=== PATIENT | male | born 1955 | race Caucasian/White ===

== ENCOUNTER 2021-12-03 12:35 | Day surgery (SDC) | payer BC, SELFPAY ==
[2021-12-03] VITALS (11 sets, daily range): BP systolic 130–164; BP diastolic 84–98; PULSE 64–84; RESP 15–35; TEMP 36.3–36.9; O2SAT 95–100; BMI 22.0
[2021-12-03 13:25] LABS: COVID-19 Test Negative (Negative); IDNOW Serial# 55D5AD1C
--- NOTE | 2021-12-03 13:58 | MHC.SHP ---
Pre-Procedural Eval Section A Date of Service: 12/03/21 The patient is an INPATIENT: No Changes since office visit: Yes Patient answered all questions; No Cold of Flu in the past 2 weeks, No New Medical Problems and No Changes in Medication The History & Physical has been completed within 30 days and I have reviewed it.: Yes Section B Chief Complaint: depression Allergies: Allergies Allergy/AdvReac Type Severity Reaction Status Date / Time infliximab [From REMICADE] Allergy Unknown UNK Unverified 04/20/20 19:35 Penicillins [PENICILLINS] Allergy Unknown HIVES, Unverified 04/20/20 19:35 ANAPHYLAXIS Plan I have reviewed the history and physical and performed a pertinent physical examination on my patient. No changes have occurred unless specified.
--- NOTE | 2021-12-03 14:29 | HO.ECTPROC ---
ECT Procedure Note Diagnosis/Treatment Date of Service: 12/03/21 Diagnosis: Major Depressive Disorder Current Treatment Number: 1 Treatment: Series Interval Clinical Notes: pt with anxious depression has failed multiple med trials ECT Settings Device: THYMATRON DGx Electrode Placement: Right Unilateral Program/Pulse Width: 0.25 Energy Percent: 100 Medications Administration General Anesthetic: Etomidate (16) Muscle Relaxant: Succinylcholine (100) Ancillary Medications Analgesics: Torodol - Pre ECT Anti-emetics: Zofran - Pre ECT Miscillaneous Medications: Propofol (30) Airway Management Airway Management: Bag Mask Ventilation Treatment Recommendations No Changes Recommended: No change Pt Tolerated Procedure w/o Issue: Yes
[2021-12-03] MEDS: LORazepam 2 MG/ML VIAL 1 MG IVPUSH (15:11)
[2021-12-03] MEDS: ondansetron HCL 4 MG/2 ML VIAL IVPUSH (15:50)
--- NOTE | 2021-12-03 16:28 | HO.ECTPROC ---
ECT Procedure Note Diagnosis/Treatment Date of Service: 12/04/21 Diagnosis: Major Depressive Disorder Current Treatment Number: 1 Treatment: Series Interval Clinical Notes: Pt gave informed consent deptressed ruminating anxious see consult ECT Settings Device: THYMATRON DGx Electrode Placement: Right Unilateral Program/Pulse Width: 0.50 Energy Percent: 100 Medications Administration General Anesthetic: Etomidate (16) Muscle Relaxant: Succinylcholine (100) Ancillary Medications Analgesics: Torodol - Pre ECT Anti-emetics: Zofran - Pre ECT Airway Management Airway Management: Bag Mask Ventilation Treatment Recommendations Program/Pulse Width: 0.25 Notes: [place] severe and nausea postop received Ativan 1 mg IV and another 4 mg of Zofran IV may need to change from etomidate Pt Tolerated Procedure w/o Issue: No
[2021-12-03 17:21] LABS: TSH reflex Free T4 1.22 uIU/mL (0.32-4.0)
[2021-12-03 17:23] LABS: Syphilis Screen Nonreactive (Nonreactive)
[2021-12-03 17:36] LABS: Folate 14.7 ng/mL (> or = 4.0); Vitamin B12 404 pg/mL (200-900)
[2021-12-05 08:37] LABS: Lyme Abs Screen <0.90 index
== END 2021-12-03 17:53 | disposition home or self-care (01) ==
PROVIDERS: PCP Family Medicine; Visit Provider Psychiatry & Neurology Psychiatry
PROC: (CPT 90870; principal; 2021-12-03 16:30)
DX: F33.2 Major depressive disorder, recurrent severe without psychotic features (principal); F41.8 Other specified anxiety disorders; K50.90 Crohn's disease, unspecified, without complications; J45.20 Mild intermittent asthma, uncomplicated; Z79.899 Other long term (current) drug therapy; Z88.0 Allergy status to penicillin; Z88.8 Allergy status to other drugs, medicaments and biological substances; Z20.822 Contact with and (suspected) exposure to COVID-19
CPT/HCPCS: 36415; 82607; 82746; 84443; 86617; 86618; 86780; 87635; 90870; J0330; J1885; J2060; J2405; J2550

== ENCOUNTER 2021-12-05 06:05 | Day surgery (SDC) | payer BC, SELFPAY ==
[2021-12-05] VITALS (8 sets, daily range): BP systolic 118–146; BP diastolic 56–86; PULSE 64–72; RESP 14–18; TEMP 36.3–36.9; O2SAT 94–97; BMI 23.1
[2021-12-05 06:40] LABS: COVID-19 Test Negative (Negative)
--- NOTE | 2021-12-05 06:47 | P.CONAN_ITS ---
[facility] Active Problems Active Problems: All Active Problems (Updated 11/30/21 @ 12:28 by Germaine Aranda NP) Generalized anxiety disorder (Acute) Depression, major, severe recurrence (Acute) Past Medical History Medical History (Updated 11/30/21 @ 12:28 by Germaine Aranda NP) Asthma Crohn disease Depression, major, severe recurrence Generalized anxiety disorder Family History Family history of problems with anesthesia: No Surgical History History of Problems with Anesthesia: No Social History Social History Advance Directives: No Advance Directives Information Provided: Yes Meds Allergies Allergy/AdvReac Type Severity Reaction Status Date / Time infliximab [From REMICADE] Allergy Unknown UNK Verified 12/03/21 15:52 Penicillins [PENICILLINS] Allergy Unknown HIVES, Verified 12/03/21 15:52 ANAPHYLAXIS Active Medications: Current Medications Lactated Ringer's (Lr) 1,000 mls @ 50 mls/hr IVCONT .Q20H VIGNESH Exam Exam Date and Time: December 05, 2021 0647 Height,Weight and Vital Signs: Height 6 ft 1 in Weight 79.379 kg Last Vital Signs Temp 98.4 F 12/05/21 06:35 Pulse 64 12/05/21 06:35 Resp 16 12/05/21 06:35 BP 118/56 L 12/05/21 06:35 Pulse Ox 96 12/05/21 06:35 Pertinent Lab Results Pertinent Lab Results: Laboratory Tests 12/05/21 06:16 COVID-19 (PHONG) Negative COVID-19 Clin Com See Note Airway Mallampati Class: II TM Dist: >3cm Neck ROM: Full Heart: rrr Lungs: cta Assessment and Plan Assessment Anesthesia Assessment: Anesthesia Plan Discussed and Chart Reviewed Final Anesthetic Review Family History of Problems with Anesthesia: No History of Problems with Anesthesia: No NPO: Yes ASA Class: III Final Preanesthetic Review: No Changes in Pt Med Stat, Meds/Allgs Chart Reviewed and Consent Obtained/Reviewed Patient Risk: Intermediate Procedure Risk: Intermediate Anesthetic Plan Anesthetic Plan: GA Disposition: Standard PACU
--- NOTE | 2021-12-05 07:08 | MHC.SHP ---
Pre-Procedural Eval Section A Date of Service: 12/05/21 The patient is an INPATIENT: No Changes since office visit: Yes Patient answered all questions; No Cold of Flu in the past 2 weeks, No New Medical Problems and No Changes in Medication The History & Physical has been completed within 30 days and I have reviewed it.: Yes Section B Chief Complaint: depression Allergies: Allergies Allergy/AdvReac Type Severity Reaction Status Date / Time infliximab [From REMICADE] Allergy Unknown UNK Verified 12/03/21 15:52 Penicillins [PENICILLINS] Allergy Unknown HIVES, Verified 12/03/21 15:52 ANAPHYLAXIS Plan I have reviewed the history and physical and performed a pertinent physical examination on my patient. No changes have occurred unless specified.
--- NOTE | 2021-12-05 07:09 | HO.ECTPROC ---
ECT Procedure Note Diagnosis/Treatment Date of Service: 12/05/21 Diagnosis: Major Depressive Disorder Previous ECT Date: 12/03/21 Current Treatment Number: 2 Treatment: Series Interval Clinical Notes: Pt feels less anxious less depressed no c/o side effects ECT Settings Device: THYMATRON DGx Electrode Placement: Right Unilateral Program/Pulse Width: 0.50 Energy Percent: 80 Seizure Duration By EEG (in seconds): 52 Medications Administration General Anesthetic: Etomidate (14) Muscle Relaxant: Succinylcholine (120) Ancillary Medications Analgesics: Torodol - Pre ECT (4) Miscillaneous Medications: Midazolam (2mg) Airway Management Airway Management: Bag Mask Ventilation Treatment Recommendations No Changes Recommended: No change Pt Tolerated Procedure w/o Issue: Yes
[2021-12-05 07:49] LABS: Anion Gap 12 (12-20); Blood Urea Nitrogen 15 mg/dL (9-16); Calcium 8.3 mg/dL (8.4-10.2); Carbon Dioxide 23 mmol/L (22-29); Chloride 108 mmol/L (96-108); Estimated Glomerular Filt Rate > 60; Glucose Fasting 117 mg/dL (60-99); Potassium 4.4 mmol/L (3.3-5.1); Sodium 139 mmol/L (135-145)
[2021-12-05] MEDS: Lactated Ringers 1,000 ML 50 ML IVCONT (08:46)
[2021-12-05] MEDS: Ondansetron ODT 4 MG TAB.RAPDIS TRANSLINGU (09:14)
--- NOTE | 2021-12-05 09:34 | PC.NURSE ---
PATIENT STATED DISCHARGE AND SOME NAUSEA WHILE IN DISCHARGE AREA. THIS RN HAD DR. RODRIGUEZ ASSESS PATIENT. PATIENT GIVEN ZOFRAN PER ORDER. PATIENT GIVEN GINGERALE AND A MUFFIN.
--- NOTE | 2021-12-05 09:55 | PC.NURSE ---
PATIENT STATES FEELING BETTER BUT REMAINS A LITTLE SHAKY. ANESTHESIOLOGIST RE ASSESSED AND PATIENT BEING DISCHARGED HOME.
--- NOTE | 2021-12-05 10:16 | PC.NURSE ---
PATIENT REASSESSED AGAIN PRIOR TO DISCHARGE BY ANESTHESIOLOGIST. ANESTHESIOLOGIST TO ALSO NOTIFY DR. ROSE. PT DISCHARGED HOME.
== END 2021-12-05 10:17 | disposition home or self-care (01) ==
PROVIDERS: Nurse Practitioner; PCP Family Medicine; Visit Provider Psychiatry & Neurology Psychiatry
PROC: (CPT 90870; principal; 2021-12-05 07:30)
DX: F33.2 Major depressive disorder, recurrent severe without psychotic features (principal); F41.1 Generalized anxiety disorder; K50.90 Crohn's disease, unspecified, without complications; J45.20 Mild intermittent asthma, uncomplicated; Z79.899 Other long term (current) drug therapy; Z88.0 Allergy status to penicillin; Z88.8 Allergy status to other drugs, medicaments and biological substances; Z20.822 Contact with and (suspected) exposure to COVID-19
CPT/HCPCS: 36415; 80048; 87635; 90870; J0330; J1885; J2250; J2405

== ENCOUNTER 2021-12-07 06:00 | Day surgery (SDC) | payer BC, SELFPAY ==
[2021-12-07] VITALS (9 sets, daily range): BP systolic 109–131; BP diastolic 66–86; PULSE 56–70; RESP 12–20; TEMP 36.6–36.7; O2SAT 96–98; BMI 23.1
[2021-12-07 06:39] LABS: COVID-19 Test Negative (Negative)
--- NOTE | 2021-12-07 06:56 | HO.ANESPROP2 ---
[facility] Active Problems Active Problems: All Active Problems (Updated 11/30/21 @ 12:28 by Germaine Aranda NP) Generalized anxiety disorder (Acute) Depression, major, severe recurrence (Acute) Past Medical History Medical History (Updated 11/30/21 @ 12:28 by Germaine Aranda NP) Asthma Crohn disease Depression, major, severe recurrence Generalized anxiety disorder Family History Family history of problems with anesthesia: No Surgical History History of Problems with Anesthesia: No Social History Social History Advance Directives: No Advance Directives Information Provided: Yes Meds Allergies Allergy/AdvReac Type Severity Reaction Status Date / Time infliximab [From REMICADE] Allergy Unknown UNK Verified 12/03/21 15:52 Penicillins [PENICILLINS] Allergy Unknown HIVES, Verified 12/03/21 15:52 ANAPHYLAXIS Active Medications: Current Medications Lactated Ringer's (Lr) 1,000 mls @ 50 mls/hr IVCONT .Q20H VIGNESH Exam Exam Date and Time: December 07, 2021 0656 Height,Weight and Vital Signs: Height 6 ft 1 in Weight 79.379 kg Last Vital Signs Temp 98.1 F 12/07/21 06:30 Pulse 58 12/07/21 06:30 Resp 17 12/07/21 06:30 BP 109/71 12/07/21 06:30 Pulse Ox 98 12/07/21 06:30 Pertinent Lab Results Pertinent Lab Results: Laboratory Tests 12/07/21 06:17 COVID-19 (PHONG) Negative COVID-19 Clin Com See Note Airway Mallampati Class: II TM Dist: >3cm Neck ROM: Full Heart: rrr Lungs: cta Assessment and Plan Assessment Anesthesia Assessment: Anesthesia Plan Discussed and Chart Reviewed Final Anesthetic Review Family History of Problems with Anesthesia: No History of Problems with Anesthesia: No NPO: Yes ASA Class: III Final Preanesthetic Review: No Changes in Pt Med Stat, Meds/Allgs Chart Reviewed and Consent Obtained/Reviewed Patient Risk: Intermediate Procedure Risk: Intermediate Anesthetic Plan Anesthetic Plan: GA Disposition: Standard PACU
--- NOTE | 2021-12-07 07:09 | MHC.SHP ---
Pre-Procedural Eval Section A Date of Service: 12/07/21 The patient is an INPATIENT: No Changes since office visit: Yes Cold of Flu in the past 2 weeks, Yes New Medical Problems, Yes Changes in Medication and Yes Patient answered all questions The History & Physical has been completed within 30 days and I have reviewed it.: Yes Section B Chief Complaint: depression Allergies: Allergies Allergy/AdvReac Type Severity Reaction Status Date / Time infliximab [From REMICADE] Allergy Unknown UNK Verified 12/03/21 15:52 Penicillins [PENICILLINS] Allergy Unknown HIVES, Verified 12/03/21 15:52 ANAPHYLAXIS Plan I have reviewed the history and physical and performed a pertinent physical examination on my patient. No changes have occurred unless specified.
--- NOTE | 2021-12-07 07:55 | HO.ECTPROC ---
ECT Procedure Note Diagnosis/Treatment Date of Service: 12/07/21 Diagnosis: Major Depressive Disorder Previous ECT Date: 12/05/21 Current Treatment Number: 4 Treatment: Series Interval Clinical Notes: The patient reported feeling better, less anxious. on interview, he was pleasant, feeling much better ECT Settings Device: THYMATRON DGx Electrode Placement: Right Unilateral Program/Pulse Width: 0.25 Energy Percent: 100 Seizure Duration By EEG (in seconds): 42 Medications Administration General Anesthetic: Etomidate Muscle Relaxant: Succinylcholine Ancillary Medications Analgesics: Torodol - Pre ECT Anti-emetics: Zofran - Pre ECT Miscillaneous Medications: Propofol Airway Management Airway Management: Bag Mask Ventilation Treatment Recommendations No Changes Recommended: No change Pt Tolerated Procedure w/o Issue: Yes
[2021-12-07] MEDS: Acetaminophen 325 MG TABLET 650 MG PO (08:34)
== END 2021-12-07 10:20 | disposition home or self-care (01) ==
PROVIDERS: PCP Family Medicine; Visit Provider Psychiatry & Neurology Psychiatry
PROC: (CPT 90870; principal; 2021-12-07 07:30)
DX: F33.2 Major depressive disorder, recurrent severe without psychotic features (principal); F41.1 Generalized anxiety disorder; J45.20 Mild intermittent asthma, uncomplicated; K50.90 Crohn's disease, unspecified, without complications; Z79.899 Other long term (current) drug therapy; Z88.0 Allergy status to penicillin; Z88.8 Allergy status to other drugs, medicaments and biological substances; Z20.822 Contact with and (suspected) exposure to COVID-19
CPT/HCPCS: 87635; 90870; J0330; J1885; J2250; J2405; J2550

== ENCOUNTER 2021-12-10 06:00 | Day surgery (SDC) | payer BC, SELFPAY ==
[2021-12-10] VITALS (11 sets, daily range): BP systolic 111–146; BP diastolic 77–91; PULSE 60–69; RESP 10–23; TEMP 36.5–36.7; O2SAT 97–99; BMI 23.1
[2021-12-10 06:43] LABS: COVID-19 Test Negative (Negative)
--- NOTE | 2021-12-10 08:30 | MHC.SHP ---
Pre-Procedural Eval Section A Date of Service: 12/10/21 The patient is an INPATIENT: No Changes since office visit: Yes Patient answered all questions; No Cold of Flu in the past 2 weeks, No New Medical Problems and No Changes in Medication The History & Physical has been completed within 30 days and I have reviewed it.: Yes Section B Chief Complaint: depression Allergies: Allergies Allergy/AdvReac Type Severity Reaction Status Date / Time infliximab [From REMICADE] Allergy Unknown UNK Verified 12/03/21 15:52 Penicillins [PENICILLINS] Allergy Unknown HIVES, Verified 12/03/21 15:52 ANAPHYLAXIS Plan I have reviewed the history and physical and performed a pertinent physical examination on my patient. No changes have occurred unless specified.
[2021-12-10] MEDS: LORazepam 2 MG/ML VIAL 0.5 MG IVPUSH (08:43)
--- NOTE | 2021-12-10 09:45 | HO.ECTPROC ---
ECT Procedure Note Diagnosis/Treatment Date of Service: 12/12/21 Diagnosis: Bipolar disorder Previous ECT Date: 12/08/21 Current Treatment Number: 2 Treatment: Series Interval Clinical Notes: remains quite agitated psychotic has diarrhea ECT Settings Device: THYMATRON DGx Electrode Placement: Bitemporal Program/Pulse Width: 0.50 Energy Percent: 100 Seizure Duration By EEG (in seconds): 37 Medications Administration General Anesthetic: Etomidate (14) Muscle Relaxant: Succinylcholine (120) Ancillary Medications Analgesics: Torodol - Pre ECT Anti-emetics: Zofran - Pre ECT (4 plus 4 ) Miscillaneous Medications: Flumazenil Airway Management Airway Management: Bag Mask Ventilation Treatment Recommendations No Changes Recommended: No change Notes: post op nausea Pt Tolerated Procedure w/o Issue: Yes
--- NOTE | 2021-12-10 09:52 | HO.ANESPROP2 ---
[facility] Active Problems Active Problems: All Active Problems (Updated 11/30/21 @ 12:28 by Germaine Aranda NP) Generalized anxiety disorder (Acute) Depression, major, severe recurrence (Acute) Past Medical History Medical History (Updated 11/30/21 @ 12:28 by Germaine Aranda NP) Asthma Crohn disease Depression, major, severe recurrence Generalized anxiety disorder Family History Family history of problems with anesthesia: No Surgical History History of Problems with Anesthesia: No Social History Social History Advance Directives: No Advance Directives Information Provided: Yes Meds Allergies Allergy/AdvReac Type Severity Reaction Status Date / Time infliximab [From REMICADE] Allergy Unknown UNK Verified 12/03/21 15:52 Penicillins [PENICILLINS] Allergy Unknown HIVES, Verified 12/03/21 15:52 ANAPHYLAXIS Exam Exam Date and Time: December 10, 202152 Height,Weight and Vital Signs: Height 6 ft 1 in Weight 79.379 kg Last Vital Signs Temp 97.9 F 12/10/21 09:39 Pulse 60 12/10/21 09:39 Resp 10 L 12/10/21 09:39 BP 131/84 12/10/21 09:39 Pulse Ox 99 12/10/21 09:39 Pertinent Lab Results Pertinent Lab Results: Laboratory Tests 12/10/21 06:15 COVID-19 (PHONG) Negative COVID-19 Clin Com See Note Airway Mallampati Class: II TM Dist: >3cm Neck ROM: Full Assessment and Plan Assessment Anesthesia Assessment: Anesthesia Plan Discussed and Chart Reviewed Final Anesthetic Review Family History of Problems with Anesthesia: No History of Problems with Anesthesia: No NPO: Yes ASA Class: II Final Preanesthetic Review: No Changes in Pt Med Stat, Meds/Allgs Chart Reviewed, Consent Obtained/Reviewed and Anes Risks/Benef Reviewed Patient Risk: Intermediate Procedure Risk: Intermediate Anesthetic Plan Anesthetic Plan: GA Disposition: Standard PACU
[2021-12-10] MEDS: Acetaminophen 325 MG TABLET 650 MG PO (10:45)
--- NOTE | 2021-12-12 07:52 | HO.ECTPROC ---
ECT Procedure Note Diagnosis/Treatment Date of Service: 12/12/21 Previous ECT Date: 12/10/21 Current Treatment Number: 5 Treatment: Series Interval Clinical Notes: shows cleae r improvement alert oriented ECT Settings Device: THYMATRON DGx Program/Pulse Width: 0.25 Energy Percent: 100 Seizure Duration By EEG (in seconds): 32 Medications Administration General Anesthetic: Etomidate (14) Muscle Relaxant: Succinylcholine (100) Ancillary Medications Analgesics: Torodol - Pre ECT Anti-emetics: Zofran - Pre ECT Miscillaneous Medications: Flumazenil (250) Airway Management Airway Management: Bag Mask Ventilation Treatment Recommendations Notes: lower etomidate 12 mg has nausea
== END 2021-12-10 12:43 | disposition home or self-care (01) ==
PROVIDERS: PCP Family Medicine; Visit Provider Psychiatry & Neurology Psychiatry
PROC: (CPT 90870; principal; 2021-12-10 09:30)
DX: F33.2 Major depressive disorder, recurrent severe without psychotic features (principal); J45.20 Mild intermittent asthma, uncomplicated; K50.90 Crohn's disease, unspecified, without complications; F41.1 Generalized anxiety disorder; Z79.899 Other long term (current) drug therapy; Z88.0 Allergy status to penicillin; Z88.8 Allergy status to other drugs, medicaments and biological substances; Z20.822 Contact with and (suspected) exposure to COVID-19
CPT/HCPCS: 87635; 90870; J0330; J1885; J2060; J2250; J2405; J2550

== ENCOUNTER 2021-12-12 06:08 | Day surgery (SDC) | payer BC, SELFPAY ==
[2021-12-12] VITALS (9 sets, daily range): BP systolic 119–153; BP diastolic 71–93; PULSE 62–79; RESP 12–22; TEMP 36.1–37; O2SAT 96–97; BMI 23.1
[2021-12-12 06:47] LABS: COVID-19 Test Negative (Negative); IDNOW Serial# 16C4AD1C
--- NOTE | 2021-12-12 07:27 | MHC.SHP ---
Pre-Procedural Eval Section A Date of Service: 12/12/21 The patient is an INPATIENT: No Changes since office visit: Yes Patient answered all questions; No Cold of Flu in the past 2 weeks, No New Medical Problems and No Changes in Medication The History & Physical has been completed within 30 days and I have reviewed it.: Yes Section B Chief Complaint: depression Allergies: Allergies Allergy/AdvReac Type Severity Reaction Status Date / Time infliximab [From REMICADE] Allergy Unknown UNK Verified 12/03/21 15:52 Penicillins [PENICILLINS] Allergy Unknown HIVES, Verified 12/03/21 15:52 ANAPHYLAXIS Plan I have reviewed the history and physical and performed a pertinent physical examination on my patient. No changes have occurred unless specified.
--- NOTE | 2021-12-12 07:28 | HO.ECTPROC ---
ECT Procedure Note Diagnosis/Treatment Date of Service: 12/12/21 Diagnosis: Major Depressive Disorder Previous ECT Date: 12/10/21 Current Treatment Number: 5 Treatment: Series ECT Settings Device: THYMATRON DGx Electrode Placement: Right Unilateral Program/Pulse Width: 0.25 Energy Percent: 100 Seizure Duration By EEG (in seconds): 32 Ancillary Medications Analgesics: Torodol - Pre ECT Anti-emetics: Zofran - Pre ECT Miscillaneous Medications: Propofol (30 plus 30) and Flumazenil Airway Management Airway Management: Bag Mask Ventilation Treatment Recommendations Notes: gets post op nausea and delerium got 2 mg iv ativan aviid flumazenil try droperidal o.5 post op consider change to propofol Pt Tolerated Procedure w/o Issue: No
--- NOTE | 2021-12-12 07:37 | HO.ANESPROP2 ---
[facility] Active Problems Active Problems: All Active Problems (Updated 11/30/21 @ 12:28 by Germaine Aranda NP) Generalized anxiety disorder (Acute) Depression, major, severe recurrence (Acute) Past Medical History Medical History (Updated 11/30/21 @ 12:28 by Germaine Aranda NP) Asthma Crohn disease Depression, major, severe recurrence Generalized anxiety disorder Family History Family history of problems with anesthesia: No Surgical History History of Problems with Anesthesia: No Social History Social History Advance Directives: No Advance Directives Information Provided: Yes Meds Allergies Allergy/AdvReac Type Severity Reaction Status Date / Time infliximab [From REMICADE] Allergy Unknown UNK Verified 12/03/21 15:52 Penicillins [PENICILLINS] Allergy Unknown HIVES, Verified 12/03/21 15:52 ANAPHYLAXIS Active Medications: Current Medications Lactated Ringer's (Lr) 1,000 mls @ 50 mls/hr IVCONT .Q20H VIGNESH Exam Exam Date and Time: December 12, 2021 0737 Height,Weight and Vital Signs: Height 6 ft 1 in Weight 79.379 kg Last Vital Signs Temp 98.6 F 12/12/21 06:27 Pulse 65 12/12/21 06:27 Resp 20 12/12/21 06:27 BP 127/75 12/12/21 06:27 Pulse Ox 97 12/12/21 06:27 Pertinent Lab Results Pertinent Lab Results: Laboratory Tests 12/12/21 06:15 COVID-19 (PHONG) Negative COVID-19 Clin Com See Note Airway Mallampati Class: II TM Dist: >3cm Neck ROM: Full Heart: rrr Lungs: cta Assessment and Plan Assessment Anesthesia Assessment: Anesthesia Plan Discussed and Chart Reviewed Final Anesthetic Review Family History of Problems with Anesthesia: No History of Problems with Anesthesia: No NPO: Yes ASA Class: III Final Preanesthetic Review: No Changes in Pt Med Stat, Meds/Allgs Chart Reviewed and Consent Obtained/Reviewed Patient Risk: Intermediate Procedure Risk: Intermediate Anesthetic Plan Anesthetic Plan: GA Disposition: Standard PACU
[2021-12-12] MEDS: LORazepam 2 MG/ML VIAL 1 MG IVPUSH ×2 (08:05→08:22)
[2021-12-12] MEDS: Acetaminophen 325 MG TABLET 650 MG PO (09:35)
== END 2021-12-12 10:10 | disposition home or self-care (01) ==
PROVIDERS: PCP Family Medicine; Visit Provider Psychiatry & Neurology Psychiatry
PROC: (CPT 90870; principal; 2021-12-12 07:30)
DX: F33.2 Major depressive disorder, recurrent severe without psychotic features (principal); F41.1 Generalized anxiety disorder; J45.20 Mild intermittent asthma, uncomplicated; K50.90 Crohn's disease, unspecified, without complications; Z79.899 Other long term (current) drug therapy; Z88.0 Allergy status to penicillin; Z88.8 Allergy status to other drugs, medicaments and biological substances; Z20.822 Contact with and (suspected) exposure to COVID-19
CPT/HCPCS: 87635; 90870; J0330; J1885; J2060; J2405; J2550

== ENCOUNTER 2021-12-17 06:02 | Day surgery (SDC) | payer BC, SELFPAY ==
[2021-12-17 06:31] VITALS: BMI 22.6
[2021-12-17 06:38] LABS: COVID-19 Test Negative (Negative); IDNOW Serial# 9DB6401D
--- NOTE | 2021-12-17 06:55 | P.CONAN_ITS ---
[facility] Active Problems Active Problems: All Active Problems (Updated 11/30/21 @ 12:28 by Germaine Aranda NP) Generalized anxiety disorder (Acute) Depression, major, severe recurrence (Acute) Past Medical History Medical History (Updated 11/30/21 @ 12:28 by Germaine Aranda NP) Asthma Crohn disease Depression, major, severe recurrence Generalized anxiety disorder Family History Family history of problems with anesthesia: No Surgical History History of Problems with Anesthesia: No Social History Social History Advance Directives: No Advance Directives Information Provided: Yes Meds Allergies Allergy/AdvReac Type Severity Reaction Status Date / Time infliximab [From REMICADE] Allergy Unknown UNK Verified 12/03/21 15:52 Penicillins [PENICILLINS] Allergy Unknown HIVES, Verified 12/03/21 15:52 ANAPHYLAXIS Exam Exam Date and Time: December 17, 2021 0655 Height,Weight and Vital Signs: Height 6 ft 1 in Weight 78.018 kg Pertinent Lab Results Pertinent Lab Results: Laboratory Tests 12/17/21 06:15 COVID-19 (PHONG) Negative COVID-19 Clin Com See Note Airway Mallampati Class: II TM Dist: >3cm Neck ROM: Full Heart: rrr Lungs: cta Assessment and Plan Assessment Anesthesia Assessment: Anesthesia Plan Discussed and Chart Reviewed Final Anesthetic Review Family History of Problems with Anesthesia: No History of Problems with Anesthesia: No NPO: Yes ASA Class: III Final Preanesthetic Review: No Changes in Pt Med Stat, Meds/Allgs Chart Reviewed and Consent Obtained/Reviewed Patient Risk: Intermediate Procedure Risk: Intermediate Anesthetic Plan Anesthetic Plan: GA Disposition: Standard PACU
--- NOTE | 2021-12-17 06:57 | P.CONAN_ITS ---
[facility] Active Problems Active Problems: All Active Problems (Updated 11/30/21 @ 12:28 by Germaine Aranda NP) Generalized anxiety disorder (Acute) Depression, major, severe recurrence (Acute) Past Medical History Medical History (Updated 11/30/21 @ 12:28 by Germaine Aranda NP) Asthma Crohn disease Depression, major, severe recurrence Generalized anxiety disorder Family History Family history of problems with anesthesia: No Surgical History History of Problems with Anesthesia: No Social History Social History Advance Directives: No Advance Directives Information Provided: Yes Meds Allergies Allergy/AdvReac Type Severity Reaction Status Date / Time infliximab [From REMICADE] Allergy Unknown UNK Verified 12/03/21 15:52 Penicillins [PENICILLINS] Allergy Unknown HIVES, Verified 12/03/21 15:52 ANAPHYLAXIS Active Medications: Current Medications Lactated Ringer's (Lr) 1,000 mls @ 50 mls/hr IVCONT .Q20H VIGNESH Exam Exam Date and Time: December 17, 2021 0657 Height,Weight and Vital Signs: Height 6 ft 1 in Weight 78.018 kg Pertinent Lab Results Pertinent Lab Results: Laboratory Tests 12/17/21 06:15 COVID-19 (PHONG) Negative COVID-19 Clin Com See Note Airway Mallampati Class: II TM Dist: >3cm Neck ROM: Full Heart: rrr Lungs: cta Assessment and Plan Assessment Anesthesia Assessment: Anesthesia Plan Discussed and Chart Reviewed Final Anesthetic Review Family History of Problems with Anesthesia: No History of Problems with Anesthesia: No NPO: Yes ASA Class: III Final Preanesthetic Review: No Changes in Pt Med Stat, Meds/Allgs Chart Reviewed and Consent Obtained/Reviewed Patient Risk: Intermediate Procedure Risk: Intermediate Anesthetic Plan Anesthetic Plan: GA Disposition: Standard PACU
--- NOTE | 2021-12-17 07:24 | MHC.SHP ---
Pre-Procedural Eval Section A Date of Service: 12/17/21 Changes since office visit: Yes Patient answered all questions; No Cold of Flu in the past 2 weeks, No New Medical Problems and No Changes in Medication The History & Physical has been completed within 30 days and I have reviewed it.: Yes Section B Chief Complaint: depression Allergies: Allergies Allergy/AdvReac Type Severity Reaction Status Date / Time infliximab [From REMICADE] Allergy Unknown UNK Verified 12/03/21 15:52 Penicillins [PENICILLINS] Allergy Unknown HIVES, Verified 12/03/21 15:52 ANAPHYLAXIS Plan I have reviewed the history and physical and performed a pertinent physical examination on my patient. No changes have occurred unless specified.
--- NOTE | 2021-12-17 07:35 | HO.ECTPROC ---
ECT Procedure Note Diagnosis/Treatment Date of Service: 12/17/21 Previous ECT Date: 12/12/21 Current Treatment Number: 6 Treatment: Series Interval Clinical Notes: pt with severe anxiety pre while waiting and due to post op nausea will change to brevital not gicve flumazenil change to 0.5 pw to compensate ECT Settings Device: THYMATRON DGx Electrode Placement: Right Unilateral Program/Pulse Width: 0.50 Energy Percent: 75 Seizure Duration By EEG (in seconds): 41 Medications Administration General Anesthetic: Methohexital (140) Muscle Relaxant: Succinylcholine (120) Ancillary Medications Anti-emetics: Zofran - Pre ECT Miscillaneous Medications: Midazolam (2 mg) Airway Management Airway Management: Bag Mask Ventilation Treatment Recommendations Program/Pulse Width: 0.50 Notes: lower brevital if brev available maintain 0.5 pw Pt Tolerated Procedure w/o Issue: Yes
[2021-12-17 07:59] VITALS: BP 132/84; PULSE 69; RESP 20; TEMP 36.4; O2SAT 98
[2021-12-17 08:04] VITALS: BP 131/80; PULSE 79; RESP 14; O2SAT 96
[2021-12-17 08:09] VITALS: BP 125/82; PULSE 80; RESP 16; O2SAT 96
[2021-12-17 08:15] VITALS: BP 127/90; PULSE 73; RESP 16; O2SAT 96
[2021-12-17 08:30] VITALS: BP 137/85; PULSE 78; RESP 17; O2SAT 98
== END 2021-12-17 08:53 | disposition home or self-care (01) ==
PROVIDERS: Anesthesiology; PCP Family Medicine; Visit Provider Psychiatry & Neurology Psychiatry
PROC: (CPT 90870; principal; 2021-12-17 07:00)
DX: F33.2 Major depressive disorder, recurrent severe without psychotic features (principal); F41.1 Generalized anxiety disorder; J45.20 Mild intermittent asthma, uncomplicated; K50.90 Crohn's disease, unspecified, without complications; Z79.899 Other long term (current) drug therapy; Z88.0 Allergy status to penicillin; Z88.8 Allergy status to other drugs, medicaments and biological substances; Z20.822 Contact with and (suspected) exposure to COVID-19
CPT/HCPCS: 87635; 90870; J0330; J1885; J2250; J2405

== ENCOUNTER 2021-12-19 06:05 | Day surgery (SDC) | payer BC, SELFPAY ==
[2021-12-19] VITALS (7 sets, daily range): BP systolic 107–138; BP diastolic 72–88; PULSE 67–77; RESP 15–20; TEMP 36.4–36.8; O2SAT 94–98; BMI 23.1
[2021-12-19 06:46] LABS: COVID-19 Test Negative (Negative); IDNOW Serial# 55D5AD1C
--- NOTE | 2021-12-19 07:24 | MHC.SHP ---
Pre-Procedural Eval Section A Date of Service: 12/19/21 The patient is an INPATIENT: No Changes since office visit: Yes Patient answered all questions; No Cold of Flu in the past 2 weeks, No New Medical Problems and No Changes in Medication The History & Physical has been completed within 30 days and I have reviewed it.: Yes Section B Chief Complaint: depression Allergies: Allergies Allergy/AdvReac Type Severity Reaction Status Date / Time infliximab [From REMICADE] Allergy Unknown UNK Verified 12/03/21 15:52 Penicillins [PENICILLINS] Allergy Unknown HIVES, Verified 12/03/21 15:52 ANAPHYLAXIS Plan I have reviewed the history and physical and performed a pertinent physical examination on my patient. No changes have occurred unless specified.
--- NOTE | 2021-12-19 07:32 | HO.ECTPROC ---
ECT Procedure Note Diagnosis/Treatment Date of Service: 12/19/21 Diagnosis: Major Depressive Disorder Previous ECT Date: 12/17/21 Current Treatment Number: 7 Treatment: Series Interval Clinical Notes: pt generally improved tends to ruminate ECT Settings Device: THYMATRON DGx Electrode Placement: Right Unilateral Program/Pulse Width: 0.50 Energy Percent: 80 Seizure Duration By EEG (in seconds): 14 Medications Administration General Anesthetic: Methohexital (140 lower to 100) Muscle Relaxant: Succinylcholine (120) Ancillary Medications Anti-emetics: Zofran - Pre ECT Airway Management Airway Management: Bag Mask Ventilation Treatment Recommendations Electrode Placement: Bifrontal Notes: change to bifrontal use BREVITAL DECREASE DOSE TO 100 MG Pt Tolerated Procedure w/o Issue: Yes
--- NOTE | 2021-12-19 09:02 | HO.ANESPROP2 ---
FORMERLY [facility] Active Problems Active Problems: All Active Problems (Updated 11/30/21 @ 12:28 by Germaine Aranda NP) Generalized anxiety disorder (Acute) Depression, major, severe recurrence (Acute) Past Medical History Medical History Asthma Crohn disease Depression, major, severe recurrence Generalized anxiety disorder Functional capacity: independent ambulation Family History Family history of problems with anesthesia: No Surgical History History of Problems with Anesthesia: No Meds Allergies Allergy/AdvReac Type Severity Reaction Status Date / Time infliximab [From REMICADE] Allergy Unknown UNK Verified 12/03/21 15:52 Penicillins [PENICILLINS] Allergy Unknown HIVES, Verified 12/03/21 15:52 ANAPHYLAXIS Exam Exam Date and Time: December 19, [id number] Height,Weight and Vital Signs: Height 6 ft 1 in Weight 79.379 kg Last Vital Signs Temp 97.6 F 12/19/21 08:41 Pulse 67 12/19/21 08:41 Resp 15 12/19/21 08:41 BP 111/72 12/19/21 08:41 Pulse Ox 98 12/19/21 08:41 Pertinent Lab Results Pertinent Lab Results: Laboratory Tests 12/19/21 06:14 COVID-19 (PHONG) Negative COVID-19 Clin Com See Note Airway Mallampati Class: II TM Dist: >3cm Heart: RRR Lungs: CTA Assessment and Plan Final Anesthetic Review Family History of Problems with Anesthesia: No History of Problems with Anesthesia: No NPO: Yes ASA Class: III Final Preanesthetic Review: No Changes in Pt Med Stat, Meds/Allgs Chart Reviewed, Consent Obtained/Reviewed and Anes Risks/Benef Reviewed Patient Risk: Low Procedure Risk: Low Anesthetic Plan Anesthetic Plan: GA Disposition: Standard PACU
--- NOTE | 2021-12-19 09:15 | P.CONAN_ITS ---
HPI - Anesthesia Eval Consult details Narrative: we pull [facility] Active Problems Active Problems: All Active Problems (Updated 11/30/21 @ 12:28 by Germaine Aranda NP) Generalized anxiety disorder (Acute) Depression, major, severe recurrence (Acute) Past Medical History Medical History Asthma Crohn disease Depression, major, severe recurrence Generalized anxiety disorder Functional capacity: independent ambulation Family History Family history of problems with anesthesia: No Surgical History History of Problems with Anesthesia: No Meds Allergies Allergy/AdvReac Type Severity Reaction Status Date / Time infliximab [From REMICADE] Allergy Unknown UNK Verified 12/03/21 15:52 Penicillins [PENICILLINS] Allergy Unknown HIVES, Verified 12/03/21 15:52 ANAPHYLAXIS Exam Exam Date and Time: December 19, 2021 0915 Height,Weight and Vital Signs: Height 6 ft 1 in Weight 79.379 kg Last Vital Signs Temp 97.6 F 12/19/21 08:41 Pulse 67 12/19/21 08:41 Resp 15 12/19/21 08:41 BP 111/72 12/19/21 08:41 Pulse Ox 98 12/19/21 08:41 Pertinent Lab Results Pertinent Lab Results: Laboratory Tests 12/19/21 06:14 COVID-19 (PHONG) Negative COVID-19 Clin Com See Note Assessment and Plan Final Anesthetic Review Family History of Problems with Anesthesia: No History of Problems with Anesthesia: No
--- NOTE | 2021-12-19 10:53 | HO.POSTANES ---
Post Anesthesia Evaluation Post Anesthesia Evaluation Vital Signs: Vital Signs Temp Pulse Resp BP Pulse Ox 12/19/21 08:41 97.6 F 67 15 111/72 98 12/19/21 08:26 72 15 107/73 98 12/19/21 08:12 71 20 118/79 94 12/19/21 08:07 68 18 119/80 94 12/19/21 08:02 77 20 131/88 97 12/19/21 07:57 97.6 F 67 16 138/85 96 12/19/21 06:34 98.3 F 69 18 120/79 98 Anesthesia: General Mental Status: Awake Pain Control: Satisfactory Nausea/Vomiting: None Hydration: Adequate Anesthesia-Related Issues: No Anes. Related Issues
== END 2021-12-19 09:00 | disposition home or self-care (01) ==
PROVIDERS: PCP Family Medicine; Visit Provider Psychiatry & Neurology Psychiatry
PROC: (CPT 90870; principal; 2021-12-19 08:00)
DX: F33.2 Major depressive disorder, recurrent severe without psychotic features (principal); F41.1 Generalized anxiety disorder; J45.20 Mild intermittent asthma, uncomplicated; K50.90 Crohn's disease, unspecified, without complications; Z20.822 Contact with and (suspected) exposure to COVID-19; Z79.899 Other long term (current) drug therapy; Z88.0 Allergy status to penicillin; Z88.8 Allergy status to other drugs, medicaments and biological substances
CPT/HCPCS: 87635; 90870; J0330; J1885; J2250; J2405

== ENCOUNTER 2021-12-24 06:02 | Day surgery (SDC) | payer BC, SELFPAY ==
--- NOTE | 2021-12-20 16:35 | HO.PSYCHPN ---
Subjective Subjective Reason For Visit: depression Medications Allergies Allergies Allergy/AdvReac Type Severity Reaction Status Date / Time infliximab [From REMICADE] Allergy Unknown UNK Verified 12/03/21 15:52 Penicillins [PENICILLINS] Allergy Unknown HIVES, Verified 12/03/21 15:52 ANAPHYLAXIS Assessment & Plan I spent minutes with the patient and/or on the patient floor today, greater than?50% of which was spent counseling/coordinating care.
[2021-12-24] VITALS (7 sets, daily range): BP systolic 107–165; BP diastolic 59–90; PULSE 69–77; RESP 16–24; TEMP 36.6–36.8; O2SAT 95–99; BMI 23.5
[2021-12-24 06:48] LABS: COVID-19 Test Negative (Negative); IDNOW Serial# 55D5AD1C
--- NOTE | 2021-12-24 07:00 | P.CONAN_ITS ---
[facility] Active Problems Active Problems: All Active Problems (Updated 11/30/21 @ 12:28 by Germaine Aranda NP) Generalized anxiety disorder (Acute) Depression, major, severe recurrence (Acute) Past Medical History Medical History Asthma Crohn disease Depression, major, severe recurrence Generalized anxiety disorder Family History Family history of problems with anesthesia: No Surgical History History of Problems with Anesthesia: No Social History Social History Advance Directives: No Advance Directives Information Provided: Yes Meds Allergies Allergy/AdvReac Type Severity Reaction Status Date / Time infliximab [From REMICADE] Allergy Unknown UNK Verified 12/03/21 15:52 Penicillins [PENICILLINS] Allergy Unknown HIVES, Verified 12/03/21 15:52 ANAPHYLAXIS Active Medications: Current Medications Lactated Ringer's (Lr) 1,000 mls @ 50 mls/hr IVCONT .Q20H VIGNESH Exam Exam Date and Time: December 24, 2021 0700 Height,Weight and Vital Signs: Height 6 ft 1 in Weight 80.739 kg Last Vital Signs Temp 97.8 F 12/24/21 06:34 Pulse 70 12/24/21 06:34 Resp 20 12/24/21 06:34 BP 128/90 H 12/24/21 06:34 Pulse Ox 99 12/24/21 06:34 Pertinent Lab Results Pertinent Lab Results: Laboratory Tests 12/24/21 06:13 COVID-19 (PHONG) Negative COVID-19 Clin Com See Note Airway Mallampati Class: II TM Dist: >3cm Neck ROM: Full Heart: rrr Lungs: cta Assessment and Plan Assessment Anesthesia Assessment: Anesthesia Plan Discussed and Chart Reviewed Final Anesthetic Review Family History of Problems with Anesthesia: No History of Problems with Anesthesia: No NPO: Yes ASA Class: III Final Preanesthetic Review: No Changes in Pt Med Stat, Meds/Allgs Chart Reviewed and Consent Obtained/Reviewed Patient Risk: Intermediate Procedure Risk: Intermediate Anesthetic Plan Anesthetic Plan: GA Disposition: Standard PACU
--- NOTE | 2021-12-24 07:31 | HO.ECTPROC ---
ECT Procedure Note Diagnosis/Treatment Date of Service: 12/24/21 Diagnosis: Major Depressive Disorder Previous ECT Date: 12/19/21 Current Treatment Number: 8 Treatment: Series Interval Clinical Notes: pt with extended series urge behavoiral activation last ect short lower brevital 100 mg ECT Settings Device: THYMATRON DGx Electrode Placement: Right Unilateral Program/Pulse Width: 0.50 Energy Percent: 100 Seizure Duration By EEG (in seconds): 11 Medications Administration General Anesthetic: Methohexital (100) Muscle Relaxant: Succinylcholine (120) Ancillary Medications Anti-emetics: Zofran - Pre ECT Miscillaneous Medications: Midazolam (2 mg) Treatment Recommendations Electrode Placement: Bifrontal Program/Pulse Width: 0.50 Notes: remains with residual sx cont tx series change to bifrontal use flumazenil Pt Tolerated Procedure w/o Issue: Yes
--- NOTE | 2021-12-24 07:31 | MHC.SHP ---
Pre-Procedural Eval Section A Date of Service: 12/24/21 The patient is an INPATIENT: No Changes since office visit: Yes Patient answered all questions; No Cold of Flu in the past 2 weeks, No New Medical Problems and No Changes in Medication The History & Physical has been completed within 30 days and I have reviewed it.: Yes Section B Chief Complaint: depression Allergies: Allergies Allergy/AdvReac Type Severity Reaction Status Date / Time infliximab [From REMICADE] Allergy Unknown UNK Verified 12/03/21 15:52 Penicillins [PENICILLINS] Allergy Unknown HIVES, Verified 12/03/21 15:52 ANAPHYLAXIS Plan I have reviewed the history and physical and performed a pertinent physical examination on my patient. No changes have occurred unless specified.
== END 2021-12-24 08:53 ==
LOC: HO.SSS 06:03
PROVIDERS: PCP Family Medicine; Visit Provider Psychiatry & Neurology Psychiatry
PROC: (CPT 90870; principal; 2021-12-24 07:30)
DX: F33.2 Major depressive disorder, recurrent severe without psychotic features (principal); Z20.822 Contact with and (suspected) exposure to COVID-19; J45.20 Mild intermittent asthma, uncomplicated; K50.90 Crohn's disease, unspecified, without complications; Z88.0 Allergy status to penicillin; Z88.8 Allergy status to other drugs, medicaments and biological substances; Z79.899 Other long term (current) drug therapy
CPT/HCPCS: 87635; 90870; J0330; J1885; J2250; J2405

== ENCOUNTER 2021-12-28 06:07 | Day surgery (SDC) | payer BC, SELFPAY ==
[2021-12-28] VITALS (7 sets, daily range): BP systolic 118–140; BP diastolic 78–87; PULSE 62–81; RESP 15–24; TEMP 36.2–36.8; O2SAT 97–100; BMI 23.1
[2021-12-28 06:45] LABS: COVID-19 Test Negative (Negative); IDNOW Serial# 55D5AD1C
--- NOTE | 2021-12-28 07:34 | MHC.SHP ---
Pre-Procedural Eval Section A Date of Service: 12/28/21 The patient is an INPATIENT: No Changes since office visit: Yes Cold of Flu in the past 2 weeks, Yes New Medical Problems, Yes Changes in Medication and Yes Patient answered all questions The History & Physical has been completed within 30 days and I have reviewed it.: Yes Section B Chief Complaint: depression Allergies: Allergies Allergy/AdvReac Type Severity Reaction Status Date / Time infliximab [From REMICADE] Allergy Unknown UNK Verified 12/03/21 15:52 Penicillins [PENICILLINS] Allergy Unknown HIVES, Verified 12/03/21 15:52 ANAPHYLAXIS Plan I have reviewed the history and physical and performed a pertinent physical examination on my patient. No changes have occurred unless specified.
--- NOTE | 2021-12-28 07:34 | HO.ECTPROC ---
ECT Procedure Note Diagnosis/Treatment Date of Service: 12/28/21 Diagnosis: Major Depressive Disorder Previous ECT Date: 12/26/21 Current Treatment Number: 9 Treatment: Series Interval Clinical Notes: The patient reported that he was not feeling the same the day after ECT. He was extremely anxious and worried that ECT could change my personality . No major changes on his anxiety. ECT Settings Device: THYMATRON DGx Electrode Placement: Bitemporal Program/Pulse Width: 0.50 Energy Percent: 100 Seizure Duration By EEG (in seconds): 42 By Motor Observation (in seconds): 17 Medications Administration General Anesthetic: Etomidate (100) Muscle Relaxant: Succinylcholine (120) Ancillary Medications Analgesics: Torodol - Pre ECT Anti-emetics: Zofran - Pre ECT Miscillaneous Medications: Flumazenil Airway Management Airway Management: Bag Mask Ventilation Treatment Recommendations No Changes Recommended: No change Pt Tolerated Procedure w/o Issue: Yes
--- NOTE | 2021-12-28 08:33 | P.CONAN_ITS ---
[facility] Active Problems Active Problems: All Active Problems (Updated 11/30/21 @ 12:28 by Germaine Aranda NP) Generalized anxiety disorder (Acute) Depression, major, severe recurrence (Acute) Past Medical History Medical History Asthma Crohn disease Depression, major, severe recurrence Generalized anxiety disorder Family History Family history of problems with anesthesia: No Surgical History History of Problems with Anesthesia: No Social History Social History Advance Directives: No Advance Directives Information Provided: Yes Meds Allergies Allergy/AdvReac Type Severity Reaction Status Date / Time infliximab [From REMICADE] Allergy Unknown UNK Verified 12/03/21 15:52 Penicillins [PENICILLINS] Allergy Unknown HIVES, Verified 12/03/21 15:52 ANAPHYLAXIS Exam Exam Date and Time: December 28, 2021 0833 Height,Weight and Vital Signs: Height 6 ft 1 in Weight 79.379 kg Last Vital Signs Temp 97.7 F 12/28/21 07:50 Pulse 81 12/28/21 08:05 Resp 15 12/28/21 08:05 BP 136/87 12/28/21 08:05 Pulse Ox 98 12/28/21 08:05 Pertinent Lab Results Pertinent Lab Results: Laboratory Tests 12/28/21 06:17 COVID-19 (PHONG) Negative COVID-19 Clin Com See Note Airway Mallampati Class: II TM Dist: >3cm Neck ROM: Full Loose/Missing/Broken Teeth: No Heart: RRR Lungs: CTA Assessment and Plan Assessment Anesthesia Assessment: Anesthesia Plan Discussed Final Anesthetic Review Family History of Problems with Anesthesia: No History of Problems with Anesthesia: No NPO: Yes ASA Class: II Final Preanesthetic Review: Meds/Allgs Chart Reviewed, Consent Obtained/Reviewed and Anes Risks/Benef Reviewed Patient Risk: Low Procedure Risk: Low Anesthetic Plan Anesthetic Plan: GA Disposition: Standard PACU
== END 2021-12-28 08:58 | disposition home or self-care (01) ==
PROVIDERS: PCP Family Medicine; Visit Provider Psychiatry & Neurology Psychiatry
PROC: (CPT 90870; principal; 2021-12-28 07:00)
DX: F33.2 Major depressive disorder, recurrent severe without psychotic features (principal); J45.20 Mild intermittent asthma, uncomplicated; K50.90 Crohn's disease, unspecified, without complications; Z79.899 Other long term (current) drug therapy; Z88.0 Allergy status to penicillin; Z88.8 Allergy status to other drugs, medicaments and biological substances; Z20.822 Contact with and (suspected) exposure to COVID-19
CPT/HCPCS: 87635; 90870; J0330; J1885; J2250

== ENCOUNTER 2022-01-02 06:02 | Day surgery (SDC) | payer BC, SELFPAY ==
[2022-01-02] VITALS (7 sets, daily range): BP systolic 124–141; BP diastolic 79–93; PULSE 67–79; RESP 16–22; TEMP 36.3–37.2; O2SAT 97–99; BMI 24.4
--- NOTE | 2022-01-02 06:37 | HO.ANESPROP2 ---
FORMERLY [facility] Active Problems Active Problems: All Active Problems (Updated 11/30/21 @ 12:28 by Germaine Aranda NP) Generalized anxiety disorder (Acute) Depression, major, severe recurrence (Acute) Past Medical History Medical History Asthma Crohn disease Depression, major, severe recurrence Generalized anxiety disorder Family History Family history of problems with anesthesia: No Surgical History History of Problems with Anesthesia: No Social History Social History Advance Directives: No Advance Directives Information Provided: Yes Meds Allergies Allergy/AdvReac Type Severity Reaction Status Date / Time infliximab [From REMICADE] Allergy Unknown UNK Verified 12/03/21 15:52 Penicillins [PENICILLINS] Allergy Unknown HIVES, Verified 12/03/21 15:52 ANAPHYLAXIS Exam Exam Date and Time: January 02, 2022 0637 Airway Mallampati Class: II TM Dist: >3cm Neck ROM: Full Heart: rrr Lungs: cta Assessment and Plan Assessment Anesthesia Assessment: Anesthesia Plan Discussed and Chart Reviewed Final Anesthetic Review Family History of Problems with Anesthesia: No History of Problems with Anesthesia: No NPO: Yes ASA Class: III Final Preanesthetic Review: No Changes in Pt Med Stat, Meds/Allgs Chart Reviewed and Consent Obtained/Reviewed Patient Risk: Intermediate Procedure Risk: Intermediate Anesthetic Plan Anesthetic Plan: GA Disposition: Standard PACU
[2022-01-02 06:48] LABS: COVID-19 Test Negative (Negative); IDNOW Serial# 16C4AD1C
--- NOTE | 2022-01-02 07:06 | MHC.SHP ---
Pre-Procedural Eval Section A Date of Service: 01/02/22 The patient is an INPATIENT: No Changes since office visit: No Cold of Flu in the past 2 weeks, No New Medical Problems, No Changes in Medication and No Patient answered all questions The History & Physical has been completed within 30 days and I have reviewed it.: Yes Section B Chief Complaint: depression Allergies: Allergies Allergy/AdvReac Type Severity Reaction Status Date / Time infliximab [From REMICADE] Allergy Unknown UNK Verified 12/03/21 15:52 Penicillins [PENICILLINS] Allergy Unknown HIVES, Verified 12/03/21 15:52 ANAPHYLAXIS Plan I have reviewed the history and physical and performed a pertinent physical examination on my patient. No changes have occurred unless specified.
--- NOTE | 2022-01-02 07:06 | HO.ECTPROC ---
ECT Procedure Note Diagnosis/Treatment Date of Service: 01/02/22 Diagnosis: Major Depressive Disorder Previous ECT Date: 12/29/20 Current Treatment Number: 10 Interval Clinical Notes: The patient remains anxiety with the procedure, no major changes. ECT Settings Device: THYMATRON DGx Electrode Placement: Bitemporal Program/Pulse Width: 0.50 Energy Percent: 100 Seizure Duration By EEG (in seconds): 18 By Motor Observation (in seconds): 12 Medications Administration General Anesthetic: Methohexital Muscle Relaxant: Succinylcholine Ancillary Medications Analgesics: Torodol - Pre ECT Anti-emetics: Zofran - Pre ECT Miscillaneous Medications: Flumazenil Airway Management Airway Management: Bag Mask Ventilation Treatment Recommendations No Changes Recommended: No change Pt Tolerated Procedure w/o Issue: Yes
[2022-01-02] MEDS: LORazepam 1 MG TABLET 2 MG PO (08:13)
== END 2022-01-02 08:45 | disposition home or self-care (01) ==
PROVIDERS: PCP Family Medicine; Visit Provider Psychiatry & Neurology Psychiatry
PROC: (CPT 90870; principal; 2022-01-02 15:30)
DX: F33.2 Major depressive disorder, recurrent severe without psychotic features (principal); F41.1 Generalized anxiety disorder; J45.20 Mild intermittent asthma, uncomplicated; K50.90 Crohn's disease, unspecified, without complications
CPT/HCPCS: 87635; 90870; J0330; J1885; J2250; J2405

== ENCOUNTER 2022-02-15 07:36 | Day surgery (SDC) | payer BC, SELFPAY ==
[2022-02-15] VITALS (8 sets, daily range): BP systolic 125–141; BP diastolic 78–90; PULSE 61–68; RESP 16–29; TEMP 36.4–36.9; O2SAT 97–100; BMI 21.7
[2022-02-15 08:13] LABS: COVID-19 Test Negative (Negative); IDNOW Serial# 9DB6401D
--- NOTE | 2022-02-15 08:31 | P.CONAN_ITS ---
[facility] Active Problems Active Problems: All Active Problems (Updated 11/30/21 @ 12:28 by Germaine Aranda NP) Generalized anxiety disorder (Acute) Depression, major, severe recurrence (Acute) Past Medical History Medical History Asthma Crohn disease Depression, major, severe recurrence Generalized anxiety disorder Family History Family history of problems with anesthesia: No Surgical History History of Problems with Anesthesia: No Social History Social History Advance Directives: No Advance Directives Information Provided: Yes Meds Allergies Allergy/AdvReac Type Severity Reaction Status Date / Time infliximab [From REMICADE] Allergy Unknown UNK Verified 12/03/21 15:52 Penicillins [PENICILLINS] Allergy Unknown HIVES, Verified 12/03/21 15:52 ANAPHYLAXIS Exam Exam Date and Time: February 15, 2022 0831 Height,Weight and Vital Signs: Height 6 ft 1 in Weight 74.843 kg Last Vital Signs Temp 97.5 F 02/15/22 08:28 Pulse 63 02/15/22 08:28 Resp 29 H 02/15/22 08:28 BP 129/87 02/15/22 08:28 Pulse Ox 97 02/15/22 08:28 O2 Del Method 02/15/22 08:28 Pertinent Lab Results Pertinent Lab Results: Laboratory Tests 02/15/22 07:43 COVID-19 (PHONG) Negative COVID-19 Clin Com See Note Airway Mallampati Class: II TM Dist: >3cm Neck ROM: Full Heart: rrr Lungs: cta Assessment and Plan Assessment Anesthesia Assessment: Anesthesia Plan Discussed and Chart Reviewed Final Anesthetic Review Family History of Problems with Anesthesia: No History of Problems with Anesthesia: No NPO: Yes ASA Class: III Final Preanesthetic Review: No Changes in Pt Med Stat, Meds/Allgs Chart Reviewed and Consent Obtained/Reviewed Patient Risk: Intermediate Procedure Risk: Intermediate Anesthetic Plan Anesthetic Plan: GA Disposition: Standard PACU
--- NOTE | 2022-02-15 09:07 | MHC.SHP ---
Pre-Procedural Eval Section A Date of Service: 02/15/22 Changes since office visit: Yes Changes in Medication and Yes Patient answered all questions; No Cold of Flu in the past 2 weeks and No New Medical Problems The History & Physical has been completed within 30 days and I have reviewed it.: No Section B Chief Complaint: depression Details of Present Illness: recurrent depression anxiety Relevant Family History (Specify if Yes): No Relevant Social History: None Present Medications: see Short Stay Collaborative assessment Medical History: No relevant PMH History of Previous Operations: Relevant previous surgery/procedure and date(s) (ect) Allergies: Allergies Allergy/AdvReac Type Severity Reaction Status Date / Time infliximab [From REMICADE] Allergy Unknown UNK Verified 12/03/21 15:52 Penicillins [PENICILLINS] Allergy Unknown HIVES, Verified 12/03/21 15:52 ANAPHYLAXIS Review of Systems Sugical H&P ROS: Negative: Cardiovascular, Respiratory and Neurological and Yes, Specify: Psychiatric (anxiety rumination ) Exam Surgical H&P Exam: Normal: Heart and Normal: Lungs Plan Diagnosis/Plan: Unchanged I have reviewed the history and physical and performed a pertinent physical examination on my patient. No changes have occurred unless specified.
--- NOTE | 2022-02-15 09:25 | HO.ECTPROC ---
ECT Procedure Note Diagnosis/Treatment Date of Service: 02/15/22 Diagnosis: Major Depressive Disorder Previous ECT Date: 01/02/22 Current Treatment Number: 11 Treatment: Maintenance Interval Clinical Notes: The patient returns somewhat reluctantly some degree of severe anxiety and thought blocking. Unclear if adverse reaction to Wellbutrin has been drumming at home getting out of bed more clear change since she has had ECT however his anxious ruminations regarding any treatment in constant monitoring of his functioning make recovery difficulty ECT Settings Device: THYMATRON DGx Electrode Placement: Bitemporal Program/Pulse Width: 0.50 Energy Percent: 100 Seizure Duration By EEG (in seconds): 18 By Motor Observation (in seconds): 12 Medications Administration General Anesthetic: Methohexital (140) Muscle Relaxant: Succinylcholine (100) Ancillary Medications Analgesics: Torodol - Pre ECT (15) Anti-emetics: Zofran - Pre ECT Miscillaneous Medications: Midazolam (2 mg post tx) and Flumazenil (500 mcg pretx ) Airway Management Airway Management: Bag Mask Ventilation Treatment Recommendations No Changes Recommended: No change Pt Tolerated Procedure w/o Issue: Yes
== END 2022-02-15 10:52 | disposition home or self-care (01) ==
PROVIDERS: PCP Family Medicine; Visit Provider Psychiatry & Neurology Psychiatry
PROC: (CPT 90870; principal; 2022-02-15 09:30)
DX: F33.2 Major depressive disorder, recurrent severe without psychotic features (principal); F41.1 Generalized anxiety disorder; J45.20 Mild intermittent asthma, uncomplicated; Z20.822 Contact with and (suspected) exposure to COVID-19; Z79.899 Other long term (current) drug therapy; Z88.0 Allergy status to penicillin; Z88.8 Allergy status to other drugs, medicaments and biological substances
CPT/HCPCS: 87635; 90870; J0330; J1885; J2250; J2405

== ENCOUNTER 2022-03-22 08:02 | Day surgery (SDC) | payer BC, SELFPAY ==
[2022-03-22 08:22] VITALS: BMI 23.3
--- NOTE | 2022-03-22 08:22 | P.CONAN_ITS ---
[facility] Active Problems Active Problems: All Active Problems (Updated 11/30/21 @ 12:28 by Germaine Aranda NP) Generalized anxiety disorder (Acute) Depression, major, severe recurrence (Acute) Past Medical History Medical History Asthma Crohn disease Depression, major, severe recurrence Generalized anxiety disorder Family History Family history of problems with anesthesia: No Surgical History History of Problems with Anesthesia: No Social History Social History Advance Directives: Yes Advance Directives on File: Yes Advance Directives Date on File: 03/22/22 Meds Allergies Allergy/AdvReac Type Severity Reaction Status Date / Time infliximab [From REMICADE] Allergy Unknown UNK Verified 12/03/21 15:52 Penicillins [PENICILLINS] Allergy Unknown HIVES, Verified 12/03/21 15:52 ANAPHYLAXIS Active Medications: Current Medications Lactated Ringer's (Lr) 1,000 mls @ 50 mls/hr IVCONT .Q20H VIGNESH Exam Exam Date and Time: March 22, 2022 0822 Airway Mallampati Class: II TM Dist: >3cm Neck ROM: Full Heart: rrr Lungs: cta Assessment and Plan Assessment Anesthesia Assessment: Anesthesia Plan Discussed and Chart Reviewed Final Anesthetic Review Family History of Problems with Anesthesia: No History of Problems with Anesthesia: No NPO: Yes ASA Class: III Final Preanesthetic Review: No Changes in Pt Med Stat, Meds/Allgs Chart Reviewed and Consent Obtained/Reviewed Patient Risk: Intermediate Procedure Risk: Intermediate Anesthetic Plan Anesthetic Plan: GA Disposition: Standard PACU
[2022-03-22 08:37] LABS: COVID-19 Test Negative (Negative)
--- NOTE | 2022-03-22 08:42 | MHC.SHP ---
Pre-Procedural Eval Section A Date of Service: 03/22/22 Changes since office visit: Yes Changes in Medication and Yes Patient answered all questions; No Cold of Flu in the past 2 weeks and No New Medical Problems The History & Physical has been completed within 30 days and I have reviewed it.: No Section B Chief Complaint: depression Details of Present Illness: recurrent dep anxiety Relevant Social History: None Present Medications: see Short Stay Collaborative assessment Medical History: No relevant PMH History of Previous Operations: Relevant previous surgery/procedure and date(s) (ect) Allergies: Allergies Allergy/AdvReac Type Severity Reaction Status Date / Time infliximab [From REMICADE] Allergy Unknown UNK Verified 12/03/21 15:52 Penicillins [PENICILLINS] Allergy Unknown HIVES, Verified 12/03/21 15:52 ANAPHYLAXIS Review of Systems Sugical H&P ROS: Negative: Cardiovascular, Respiratory and Gastrointestinal Exam Surgical H&P Exam: Normal: Heart and Normal: Lungs Plan Diagnosis/Plan: Unchanged I have reviewed the history and physical and performed a pertinent physical examination on my patient. No changes have occurred unless specified.
--- NOTE | 2022-03-22 09:07 | HO.ECTPROC ---
ECT Procedure Note Diagnosis/Treatment Date of Service: 04/02/22 Diagnosis: Major Depressive Disorder Treatment: Maintenance Interval Clinical Notes: pt has shown improvement less depressed fx better ECT Settings Device: THYMATRON DGx Electrode Placement: Bitemporal Program/Pulse Width: 0.50 Energy Percent: 100 Seizure Duration By EEG (in seconds): 58 Medications Administration General Anesthetic: Methohexital (140) Muscle Relaxant: Succinylcholine Ancillary Medications Analgesics: Torodol - Pre ECT Anti-emetics: Zofran - Pre ECT Airway Management Airway Management: Bag Mask Ventilation Treatment Recommendations Electrode Placement: Bitemporal Notes: pt has been tolerating tx maintain maintenance tx Pt Tolerated Procedure w/o Issue: Yes
[2022-03-22 09:09] VITALS: BP 129/92; PULSE 98; RESP 16; TEMP 36.9; O2SAT 97
[2022-03-22 09:14] VITALS: BP 128/85; PULSE 64; RESP 17; O2SAT 97
[2022-03-22 09:19] VITALS: BP 122/73; PULSE 76; RESP 20; O2SAT 97
[2022-03-22 09:24] VITALS: BP 118/73; PULSE 76; RESP 20; O2SAT 95
[2022-03-22 09:38] VITALS: BP 113/66; PULSE 74; RESP 18; O2SAT 96
[2022-03-22 09:53] VITALS: BP 130/87; PULSE 68; RESP 18; TEMP 36.9; O2SAT 97
== END 2022-03-22 10:20 | disposition home or self-care (01) ==
PROVIDERS: PCP Family Medicine; Visit Provider Psychiatry & Neurology Psychiatry
PROC: (CPT 90870; principal; 2022-03-22 10:00)
DX: F33.2 Major depressive disorder, recurrent severe without psychotic features (principal); F41.1 Generalized anxiety disorder; J45.20 Mild intermittent asthma, uncomplicated; K50.90 Crohn's disease, unspecified, without complications; Z88.8 Allergy status to other drugs, medicaments and biological substances; Z88.0 Allergy status to penicillin; Z79.899 Other long term (current) drug therapy; Z20.822 Contact with and (suspected) exposure to COVID-19
CPT/HCPCS: 87635; 90870; J0330; J1885; J2250; J2405

== ENCOUNTER 2022-04-19 08:09 | Day surgery (SDC) | payer MEDICARE, MEDICAID, SELFPAY ==
[2022-04-19 08:33] VITALS: BMI 22.4
--- NOTE | 2022-04-19 08:49 | HO.ANESPROP2 ---
[facility] Active Problems Active Problems: All Active Problems (Updated 11/30/21 @ 12:28 by Germaine Aranda NP) Generalized anxiety disorder (Acute) Depression, major, severe recurrence (Acute) Past Medical History Medical History Asthma Crohn disease Depression, major, severe recurrence Generalized anxiety disorder Family History Family history of problems with anesthesia: No Surgical History History of Problems with Anesthesia: No Social History Social History Are you DNR?: No Advance Directives: No Advance Directives Information Provided: Yes Advance Directives Date on File: 03/22/22 Meds Allergies Allergy/AdvReac Type Severity Reaction Status Date / Time infliximab [From REMICADE] Allergy Unknown UNK Verified 12/03/21 15:52 Penicillins [PENICILLINS] Allergy Unknown HIVES, Verified 12/03/21 15:52 ANAPHYLAXIS Exam Exam Date and Time: April 19, 2022 0849 Height,Weight and Vital Signs: Height 6 ft Weight 74.843 kg Airway Mallampati Class: III TM Dist: >3cm Neck ROM: Full Loose/Missing/Broken Teeth: No Heart: RRR Lungs: CTA Assessment and Plan Assessment Anesthesia Assessment: Anesthesia Plan Discussed and Chart Reviewed Final Anesthetic Review Family History of Problems with Anesthesia: No History of Problems with Anesthesia: No NPO: Yes ASA Class: II Final Preanesthetic Review: Meds/Allgs Chart Reviewed, Consent Obtained/Reviewed and Anes Risks/Benef Reviewed Patient Risk: Low Procedure Risk: Intermediate Anesthetic Plan Anesthetic Plan: GA Disposition: Standard PACU
[2022-04-19 08:58] LABS: COVID-19 Test Negative (Negative); IDNOW Serial# 9DB6401D
--- NOTE | 2022-04-19 09:13 | MHC.SHP ---
Pre-Procedural Eval Section A Date of Service: 04/19/22 The patient is an INPATIENT: No Changes since office visit: No Cold of Flu in the past 2 weeks, No New Medical Problems, No Changes in Medication and No Patient answered all questions The History & Physical has been completed within 30 days and I have reviewed it.: Yes Section B Chief Complaint: depression Allergies: Allergies Allergy/AdvReac Type Severity Reaction Status Date / Time infliximab [From REMICADE] Allergy Unknown UNK Verified 12/03/21 15:52 Penicillins [PENICILLINS] Allergy Unknown HIVES, Verified 12/03/21 15:52 ANAPHYLAXIS Plan I have reviewed the history and physical and performed a pertinent physical examination on my patient. No changes have occurred unless specified.
--- NOTE | 2022-04-19 09:16 | HO.ECTPROC ---
ECT Procedure Note Diagnosis/Treatment Date of Service: 04/19/22 Diagnosis: Major Depressive Disorder Previous ECT Date: 03/22/22 Treatment: Maintenance Interval Clinical Notes: The patient reported poor sleep, he needed to have increase of his Klonopin at hs. Looks euthymic ECT Settings Device: THYMATRON DGx Electrode Placement: Bitemporal Program/Pulse Width: 0.50 Energy Percent: 100 Seizure Duration By EEG (in seconds): 22 Medications Administration General Anesthetic: Methohexital (140) Muscle Relaxant: Succinylcholine (100) Ancillary Medications Analgesics: Torodol - Pre ECT Anti-emetics: Zofran - Pre ECT Miscillaneous Medications: Propofol Airway Management Airway Management: Bag Mask Ventilation Treatment Recommendations Pt Tolerated Procedure w/o Issue: Yes
[2022-04-19 09:37] VITALS: BP 112/71; PULSE 63; RESP 20; TEMP 36.2; O2SAT 96
[2022-04-19 09:42] VITALS: BP 128/84; PULSE 65; RESP 17; O2SAT 98
[2022-04-19 09:47] VITALS: PULSE 64; RESP 20; O2SAT 98
[2022-04-19 09:52] VITALS: BP 123/88; PULSE 62; RESP 19; O2SAT 97
[2022-04-19 09:59] LABS: MANUAL DIFF FLAG NO
[2022-04-19 10:07] VITALS: BP 125/84; PULSE 57; RESP 17; O2SAT 97
[2022-04-19 10:17] LABS: Basophils Absolute Auto 0.1 X10*3/uL (0.0-0.2); Basophils Percent Auto 1.3 % (0-2); Eosinophils Absolute Auto 0.5 X10*3/uL (0.0-0.4); Eosinophils Percent Auto 8.7 % (0-4); Hematocrit 40.3 % (42.0-52.0); Hematocrit 41.1 % (42.0-52.0); Hemoglobin 13.7 g/dl (14.0-18.0); Hemoglobin 13.8 g/dl (14.0-18.0); Imm Gran Abs Auto 0.23 X10*3/uL (0.00-0.03); Imm Gran Pct Auto 3.8 % (0.0-0.4); Lymphocytes Absolute Auto 0.9 X10*3/uL (1.2-4.9); Lymphocytes Percent Auto 14.7 % (20-40); Mean Corpuscular HGB Conc 33.3 g/dl (31.0-36.0); Mean Corpuscular HGB Conc 34.2 g/dl (31.0-36.0); Mean Corpuscular Hemoglobin 30.2 pg (27.0-33.0); Mean Corpuscular Hemoglobin 31.2 pg (27.0-33.0); Mean Corpuscular Volume 90.7 fL (80.0-98.0); Mean Corpuscular Volume 91.2 fL (80.0-98.0); Mean Platelet Volume 8.4 fL (9.4-12.4); Monocytes Absolute Auto 0.5 X10*3/uL (0.1-1.2); Monocytes Percent Auto 7.7 % (2-11); Neutrophils Absolute Auto 3.9 x10*3/uL (2.0-8.3); Neutrophils Percent Auto 63.8 % (45-73); Platelet Count 234 X10*3/uL (160-400); Platelet Count 240 X10*3/uL (160-400); Red Blood Count 4.42 X10*6/uL (4.60-5.80); Red Blood Count 4.53 X10*6/uL (4.60-5.80); Red Cell Distribution Width 12.7 % (11.0-16.0); White Blood Count 6.1 X10*3/uL (4.8-10.8); White Blood Count 6.2 X10*3/uL (4.8-10.8)
[2022-04-19 10:22] VITALS: BP 122/84; PULSE 57; RESP 18; TEMP 36.1; O2SAT 99
== END 2022-04-19 10:50 | disposition home or self-care (01) ==
PROVIDERS: Anesthesiology; Psychiatry & Neurology Psychiatry; PCP Family Medicine; Visit Provider Psychiatry & Neurology Psychiatry
PROC: (CPT 90870; principal; 2022-04-19 09:30)
DX: F33.2 Major depressive disorder, recurrent severe without psychotic features (principal); G47.9 Sleep disorder, unspecified; K50.90 Crohn's disease, unspecified, without complications; Z20.822 Contact with and (suspected) exposure to COVID-19; Z79.899 Other long term (current) drug therapy; Z88.0 Allergy status to penicillin; Z88.8 Allergy status to other drugs, medicaments and biological substances
CPT/HCPCS: 36415; 85025; 85027; 87635; 90870; J0330; J1885; J2250; J2405